=== PATIENT | male | born 1980 | race Caucasian/White ===

== ENCOUNTER 2022-05-22 12:20 | Inpatient (IN) | payer OTHER ==
[~2022-05-22] VITALS: Ht 167.6 cm; Wt 82.5 kg
[2022-05-22] MEDS ORDERED: ZYPR5TAB2 PO (13:02)
[2022-05-22] MEDS ORDERED: METF10004 PO (13:02)
[2022-05-22] MEDS ORDERED: SERO1TAB PO (13:02)
[2022-05-22] MEDS ORDERED: CHLO125TA PO (13:02)
[2022-05-22] MEDS ORDERED: ATOR1TAB19 PO (13:02)
[2022-05-22] MEDS ORDERED: SEMA2PEN SQ (13:02)
[2022-05-22] MEDS ORDERED: GABA-1171 PO (13:02)
[2022-05-22] MEDS ORDERED: LOSA100T45 PO (13:02)
[2022-05-22] MEDS ORDERED: VIST50CA PO (13:02)
[2022-05-22] MEDS ORDERED: ZOLO100T PO (13:02)
[2022-05-22] MEDS ORDERED: OZEM2INJ SC (13:02)
[2022-05-22] MEDS ORDERED: TRAZ-257 PO (13:02)
[2022-05-22 13:41] LABS: HEMATOCRIT 34.9 % (42.0-52.0); HEMOGLOBIN 10.6 g/dl (13.5-17.5); MEAN CORPUSCULAR HEMOGLOBIN 18.5 pg (27.0-33.0); MEAN CORPUSCULAR HGB CONC 30.4 g/dl (32.0-36.5); PLATELET COUNT, AUTOMATED 295 10^3/uL (150-450); RED BLOOD COUNT 5.72 10^6/uL (4.30-6.10); WHITE BLOOD COUNT 8.7 10^3/uL (4.0-10.0)
[2022-05-22 14:12] LABS: RSV AMPLIFICATION NEGATIVE (NEGATIVE)
[2022-05-22 14:26] LABS: AMPHETAMINES LEVEL URINE NEGATIVE (NEGATIVE); BARBITURATES URINE NEGATIVE (NEGATIVE); BENZODIAZEPINES URINE NEGATIVE (NEGATIVE); CANNABINOIDS URINE POSITIVE (NEGATIVE); COCAINE METABOLITE URINE NEGATIVE (NEGATIVE); METHADONE URINE NEGATIVE (NEGATIVE); OPIATES URINE NEGATIVE (NEGATIVE); PHENCYCLIDINE URINE NEGATIVE (NEGATIVE)
[2022-05-22 14:37] LABS: ACETAMINOPHEN LEVEL < 2.0 UG/ML (10.0-30.0); ALBUMIN 3.9 GM/DL (3.2-5.2); ALT/SGPT 21 U/L (12-78); BILIRUBIN,DIRECT 0.1 MG/DL (0.0-0.2); BILIRUBIN,TOTAL 0.4 MG/DL (0.2-1.0); BLOOD UREA NITROGEN 14 MG/DL (7-18); CALCIUM LEVEL 9.3 MG/DL (8.5-10.1); CARBON DIOXIDE LEVEL 29 MEQ/L (21-32); CHLORIDE LEVEL 104 MEQ/L (98-107); CREATININE FOR GFR 1.38 MG/DL (0.70-1.30); ETHYL ALCOHOL (ETHANOL) < 0.003 % (0.000-0.010); GLOMERULAR FILTRATION RATE > 60.0 (>60); GLUCOSE, FASTING 120 MG/DL (70-100); POTASSIUM SERUM 3.5 MEQ/L (3.5-5.1); SALICYLATE LEVEL < 1.7 MG/DL (5.0-30.0); SODIUM LEVEL 138 MEQ/L (136-145); TOTAL PROTEIN 6.4 GM/DL (6.4-8.2)
[2022-05-22] MEDS ORDERED: HYDR50TA70 PO (19:33)
[2022-05-22] MEDS ORDERED: OLAN1TAB20 PO (19:36)
[2022-05-22] MEDS ORDERED: HOME MED LIST COMPLETE! XX SCH (19:40)
[2022-05-22] MEDS ORDERED: diphenhydrAMINE 50MG/ML VIAL (J1200) IM ONE (21:40)
[2022-05-22] MEDS ORDERED: MIDAZOLAM INJ 2MG/2ML VIAL (J2250 PER 1MG) IM ONE (21:40)
[2022-05-22] MEDS ORDERED: HALOPERIDOL 5MG/ML VIAL (J1630 PER 1) IM ONE (22:00)
[2022-05-23] MEDS ORDERED: hydrOXYzine 50 MG TAB PO PRN (07:45)
[2022-05-23] MEDS ORDERED: LOSARTAN 50MG TABLET PO SCH (09:00)
[2022-05-23] MEDS ORDERED: OLANZapine 10 MG TAB PO SCH (09:00)
[2022-05-23] MEDS ORDERED: SERTRALINE 100 MG TAB PO SCH (09:00)
[2022-05-23] MEDS: GABAPENTIN 100 MG CAP PO SCH ×4 (11:18→21:42)
[2022-05-23] MEDS: CHLORTHALIDONE 25 MG TAB PO SCH ×2 (11:19→12:47)
[2022-05-23] MEDS: metFORMIN (GLUCOPHAGE) 1000MG TABLET PO SCH ×3 (11:19→21:42)
[2022-05-23] MEDS ORDERED: VIST50CA PO (12:09)
[2022-05-23] MEDS: INSULIN LISPRO (NovoLOG) PER UNIT SC SCH ×2 (12:47→18:06)
[2022-05-23] MEDS ORDERED: traZODone 100 MG TAB PO SCH (21:00)
[2022-05-23] MEDS: ATORVASTATIN 10 MG TAB PO SCH (21:42)
[2022-05-23] MEDS: QUEtiapine FUMARATE 50MG TAB PO SCH (21:42)
[2022-05-23] MEDS: LOSARTAN 50MG TABLET PO SCH (21:43)
[2022-05-23] MEDS: traZODone 100 MG TAB PO SCH (21:43)
[2022-05-23] MEDS: SERTRALINE 100 MG TAB PO SCH (21:44)
[2022-05-24] MEDS ORDERED: LORazepam 2 MG TAB PO ONE (00:05)
[2022-05-24] MEDS ORDERED: ACETAMINOPHEN TAB 650MG DOSE (2X325MG) PO ONE (00:25)
[2022-05-24] MEDS: INSULIN LISPRO (NovoLOG) PER UNIT SC SCH ×3 (07:30→17:18)
[2022-05-24] MEDS: GABAPENTIN 100 MG CAP PO SCH ×3 (10:17→20:30)
[2022-05-24] MEDS: CHLORTHALIDONE 25 MG TAB PO SCH (10:17)
[2022-05-24] MEDS: metFORMIN (GLUCOPHAGE) 1000MG TABLET PO SCH ×2 (10:17→20:29)
[2022-05-24] MEDS: LOSARTAN 50MG TABLET PO SCH (20:29)
[2022-05-24] MEDS: traZODone 100 MG TAB PO SCH (20:29)
[2022-05-24] MEDS: ATORVASTATIN 10 MG TAB PO SCH (20:30)
[2022-05-24] MEDS: SERTRALINE 100 MG TAB PO SCH (20:31)
[2022-05-24] MEDS: QUEtiapine FUMARATE 50MG TAB PO SCH (20:31)
[2022-05-25] MEDS: INSULIN LISPRO (NovoLOG) PER UNIT SC SCH ×2 (07:30→11:47)
[2022-05-25] MEDS: CHLORTHALIDONE 25 MG TAB PO SCH (08:33)
[2022-05-25] MEDS: metFORMIN (GLUCOPHAGE) 1000MG TABLET PO SCH ×2 (08:33→18:17)
[2022-05-25] MEDS: GABAPENTIN 100 MG CAP PO SCH ×2 (08:33→16:27)
[2022-05-25] MEDS: NICOTINE 21MG/24HR 1 EA TRANSDERMAL TD SCH (09:00)
[2022-05-25] MEDS ORDERED: MOM 30ML SUSPENSION UDC PO PRN (12:50)
[2022-05-25] MEDS ORDERED: MAALOX 30 ML SUSP *UDC PO PRN (12:50)
[2022-05-25] MEDS ORDERED: traZODone 50 MG TAB PO PRN (12:50)
[2022-05-25] MEDS ORDERED: OLANZapine 5 MG TAB PO PRN (12:50)
[2022-05-25] MEDS ORDERED: diphenhydrAMINE 25MG CAP PO PRN (12:50)
[2022-05-25] MEDS ORDERED: hydrOXYzine 50 MG TAB PO PRN (12:50)
[2022-05-25] MEDS ORDERED: LORazepam 1 MG TAB PO PRN (12:50)
[2022-05-25 13:21] LABS: RSV AMPLIFICATION NEGATIVE (NEGATIVE)
[2022-05-25 14:36] VITALS: BP 152/71
[2022-05-26] MEDS: ACETAMINOPHEN TAB 650MG DOSE (2X325MG) PO PRN (00:04)
[2022-05-26] MEDS: ATORVASTATIN 10 MG TAB PO SCH ×2 (00:06→23:34)
[2022-05-26] MEDS: LOSARTAN 50MG TABLET PO SCH ×2 (00:06→23:34)
[2022-05-26] MEDS: QUEtiapine FUMARATE 50MG TAB PO SCH ×2 (00:07→23:34)
[2022-05-26] MEDS: GABAPENTIN 100 MG CAP PO SCH ×4 (00:07→23:34)
[2022-05-26] MEDS: traZODone 100 MG TAB PO SCH ×2 (00:07→23:34)
[2022-05-26 07:23] VITALS: BP 116/60
[2022-05-26] MEDS: NICOTINE 21MG/24HR 1 EA TRANSDERMAL TD SCH (08:32)
[2022-05-26] MEDS: metFORMIN (GLUCOPHAGE) 1000MG TABLET PO SCH ×2 (08:32→18:04)
[2022-05-26] MEDS: CHLORTHALIDONE 25 MG TAB PO SCH (08:32)
[2022-05-26] MEDS: DIVALPROEX 250 MG TAB PO SCH ×2 (09:00→21:00)
[2022-05-26 13:23] LABS: PERCENT SATURATION 20.8 % (19.7-50.0)
[2022-05-26 16:35] VITALS: BP 135/66
[2022-05-27 07:06] VITALS: BP 134/64
[2022-05-27] MEDS: metFORMIN (GLUCOPHAGE) 1000MG TABLET PO SCH ×2 (08:35→18:20)
[2022-05-27] MEDS: DIVALPROEX 250 MG TAB PO SCH (08:35)
[2022-05-27] MEDS: GABAPENTIN 100 MG CAP PO SCH ×3 (08:35→22:56)
[2022-05-27] MEDS: LIDOCAINE 5% (LIDODERM) PATCH TD SCH (08:35)
[2022-05-27] MEDS: NICOTINE 21MG/24HR 1 EA TRANSDERMAL TD SCH (08:36)
[2022-05-27] MEDS: CHLORTHALIDONE 25 MG TAB PO SCH (08:37)
[2022-05-27] MEDS ORDERED: diphenhydrAMINE 50MG CAP PO PRN (12:55)
[2022-05-27] MEDS: QUEtiapine FUMARATE 50MG TAB PO SCH ×2 (14:28→22:56)
[2022-05-27 18:24] VITALS: BP 132/78
[2022-05-27] MEDS ORDERED: OZEMPIC 2 MG/1.5 ML SC SCH (21:00)
[2022-05-27] MEDS: **NOTE PATIENT COMMENT** MISC XX SCH (21:00)
[2022-05-27] MEDS: ATORVASTATIN 10 MG TAB PO SCH (22:55)
[2022-05-27] MEDS: LOSARTAN 50MG TABLET PO SCH (22:56)
[2022-05-27] MEDS: traZODone 100 MG TAB PO SCH (22:57)
[2022-05-28 06:20] VITALS: BP 110/69
[2022-05-28 07:43] LABS: CHOLESTEROL RISK RATIO 4.031 (<5)
[2022-05-28] MEDS: GABAPENTIN 100 MG CAP PO SCH ×3 (08:16→22:30)
[2022-05-28] MEDS: metFORMIN (GLUCOPHAGE) 1000MG TABLET PO SCH ×2 (08:16→17:07)
[2022-05-28] MEDS: CHLORTHALIDONE 25 MG TAB PO SCH (08:16)
[2022-05-28] MEDS: NICOTINE 21MG/24HR 1 EA TRANSDERMAL TD SCH (08:17)
[2022-05-28] MEDS: QUEtiapine FUMARATE 50MG TAB PO SCH ×2 (08:17→22:30)
[2022-05-28] MEDS: LIDOCAINE 5% (LIDODERM) PATCH TD SCH (08:18)
[2022-05-28] MEDS: ACETAMINOPHEN TAB 650MG DOSE (2X325MG) PO PRN (15:01)
[2022-05-28 16:22] VITALS: BP 133/73
[2022-05-28 16:26] VITALS: BP 107/58
[2022-05-28] MEDS: **NOTE PATIENT COMMENT** MISC XX SCH (21:00)
[2022-05-28] MEDS: LOSARTAN 50MG TABLET PO SCH (22:30)
[2022-05-28] MEDS: traZODone 100 MG TAB PO SCH (22:30)
[2022-05-28] MEDS: ATORVASTATIN 10 MG TAB PO SCH (22:30)
[2022-05-29 06:28] VITALS: BP 143/63
[2022-05-29] MEDS: QUEtiapine FUMARATE 50MG TAB PO SCH ×2 (08:35→22:32)
[2022-05-29] MEDS: metFORMIN (GLUCOPHAGE) 1000MG TABLET PO SCH ×2 (08:35→18:15)
[2022-05-29] MEDS: GABAPENTIN 100 MG CAP PO SCH ×3 (08:36→22:32)
[2022-05-29] MEDS: CHLORTHALIDONE 25 MG TAB PO SCH (08:36)
[2022-05-29] MEDS: LIDOCAINE 5% (LIDODERM) PATCH TD SCH (08:38)
[2022-05-29 16:12] VITALS: BP 130/60
[2022-05-29] MEDS: **NOTE PATIENT COMMENT** MISC XX SCH (21:00)
[2022-05-29] MEDS: LOSARTAN 50MG TABLET PO SCH (22:32)
[2022-05-29] MEDS: traZODone 100 MG TAB PO SCH (22:32)
[2022-05-29] MEDS: ATORVASTATIN 10 MG TAB PO SCH (22:32)
[2022-05-30 06:41] VITALS: BP 130/67
[2022-05-30] MEDS: CHLORTHALIDONE 25 MG TAB PO SCH (08:16)
[2022-05-30] MEDS: metFORMIN (GLUCOPHAGE) 1000MG TABLET PO SCH ×2 (08:17→18:14)
[2022-05-30] MEDS: QUEtiapine FUMARATE 50MG TAB PO SCH ×2 (08:17→20:19)
[2022-05-30] MEDS: GABAPENTIN 100 MG CAP PO SCH ×3 (08:17→20:19)
[2022-05-30] MEDS: LIDOCAINE 5% (LIDODERM) PATCH TD SCH (08:50)
[2022-05-30] MEDS: ACETAMINOPHEN TAB 650MG DOSE (2X325MG) PO PRN (16:43)
[2022-05-30 16:45] VITALS: BP 130/65
[2022-05-30] MEDS: traZODone 100 MG TAB PO SCH (20:19)
[2022-05-30] MEDS: LOSARTAN 50MG TABLET PO SCH (20:19)
[2022-05-30] MEDS: ATORVASTATIN 10 MG TAB PO SCH (20:19)
[2022-05-30] MEDS: **NOTE PATIENT COMMENT** MISC XX SCH (20:22)
[2022-05-31 06:07] VITALS: BP 134/62
[2022-05-31] MEDS: GABAPENTIN 100 MG CAP PO SCH ×3 (08:50→21:50)
[2022-05-31] MEDS: QUEtiapine FUMARATE 50MG TAB PO SCH ×2 (08:51→21:50)
[2022-05-31] MEDS: CHLORTHALIDONE 25 MG TAB PO SCH (08:51)
[2022-05-31] MEDS: metFORMIN (GLUCOPHAGE) 1000MG TABLET PO SCH ×2 (08:51→17:59)
[2022-05-31] MEDS: LIDOCAINE 5% (LIDODERM) PATCH TD SCH (08:52)
[2022-05-31 18:18] VITALS: BP 135/75
[2022-05-31] MEDS: **NOTE PATIENT COMMENT** MISC XX SCH (21:00)
[2022-05-31] MEDS: ATORVASTATIN 10 MG TAB PO SCH (21:50)
[2022-05-31] MEDS: LOSARTAN 50MG TABLET PO SCH (21:50)
[2022-05-31] MEDS: traZODone 100 MG TAB PO SCH (21:50)
[2022-06-01 06:14] VITALS: BP 110/65
[2022-06-01] MEDS: GABAPENTIN 100 MG CAP PO SCH ×3 (08:08→21:04)
[2022-06-01] MEDS: metFORMIN (GLUCOPHAGE) 1000MG TABLET PO SCH ×2 (08:08→19:47)
[2022-06-01] MEDS: QUEtiapine FUMARATE 50MG TAB PO SCH ×2 (08:08→21:04)
[2022-06-01] MEDS: CHLORTHALIDONE 25 MG TAB PO SCH (08:11)
[2022-06-01] MEDS: LIDOCAINE 5% (LIDODERM) PATCH TD SCH (09:00)
[2022-06-01 15:47] VITALS: BP 112/59
[2022-06-01 17:45] VITALS: BP 145/80
[2022-06-01] MEDS: **NOTE PATIENT COMMENT** MISC XX SCH (21:00)
[2022-06-01 21:04] VITALS: BP 145/80
[2022-06-01] MEDS: traZODone 100 MG TAB PO SCH (21:04)
[2022-06-01] MEDS: LOSARTAN 50MG TABLET PO SCH (21:04)
[2022-06-01] MEDS: ATORVASTATIN 10 MG TAB PO SCH (21:04)
[2022-06-02 07:03] VITALS: BP 140/80
[2022-06-02] MEDS: metFORMIN (GLUCOPHAGE) 1000MG TABLET PO SCH (08:02)
[2022-06-02] MEDS: QUEtiapine FUMARATE 50MG TAB PO SCH (08:02)
[2022-06-02] MEDS: GABAPENTIN 100 MG CAP PO SCH (08:02)
[2022-06-02] MEDS: CHLORTHALIDONE 25 MG TAB PO SCH (08:02)
[2022-06-02] MEDS: LIDOCAINE 5% (LIDODERM) PATCH TD SCH (08:03)
[2022-06-02] MEDS ORDERED: ATOR1TAB19 PO (08:26)
[2022-06-02] MEDS ORDERED: CHLO125TA PO (08:26)
[2022-06-02] MEDS ORDERED: TRAZ-257 PO (08:26)
[2022-06-02] MEDS ORDERED: ZOLO100T PO (08:26)
[2022-06-02] MEDS ORDERED: OZEM2INJ SC (08:26)
[2022-06-02] MEDS ORDERED: OLAN1TAB20 PO (08:26)
[2022-06-02] MEDS ORDERED: QUET50TA4 PO (08:26)
[2022-06-03] MEDS ORDERED: SERO50TA PO (15:16)
[2022-06-03] MEDS ORDERED: SERO1TAB PO (15:16)
== END 2022-06-02 12:12 | disposition home or self-care (01) | DRG 753 ==
LOC: M ED 12:20 → M ED INP 05-25 12:46 → M PSY 05-25 14:16
PROVIDERS: ADMIT Student in an Organized Health Care Education/Training Program; ATTEND Psychiatry & Neurology Psychiatry
DX: F31.9 Bipolar disorder, unspecified (principal); I10 Essential (primary) hypertension; E11.9 Type 2 diabetes mellitus without complications; D56.9 Thalassemia, unspecified; E78.5 Hyperlipidemia, unspecified; F41.9 Anxiety disorder, unspecified; Z79.84 Long term (current) use of oral hypoglycemic drugs; Z79.899 Other long term (current) drug therapy; Z20.822 Contact with and (suspected) exposure to COVID-19